=== PATIENT | female | born 1995 | race Caucasian/White ===

== ENCOUNTER 2017-04-04 09:59 | Emergency (ER) | payer OTHER ==
[~2017-04-04] VITALS: Ht 154.9 cm; Wt 50.6 kg
[2017-04-04 10:03] VITALS: BP 118/76
--- NOTE | 2017-04-04 10:09 | NUR ---
Patient to OF.
--- NOTE | 2017-04-04 10:10 | NUR ---
PATIENT PRESENTS TO ED WITH PERSISTANT PRODUCTIVE COUGH X 4 DAYS MILD WHEEZING AUDIBLE OVER UPPER LOBES . PT STATES THROAT PAIN . DENIES N/V/D; SKIN IS PINK/WARM/DRY; AAOX4 WITH EVEN AND STEADY GAIT; LUNGS CLEAR BL; HR EVEN AND REGULAR; PT DENIES ANY CP, PATIENT STATES PAIN OF 8/10 AT THIS TIME; VSS; PATIENT POSITIONED FOR COMFORT; HOB ELEVATED; BEDRAILS UP X2; BED DOWN. ER MD MADE AWARE OF PT STATUS.
--- NOTE | 2017-04-04 10:35 | NUR ---
Dr. Costa evaluating patient.
[2017-04-04 11:02] VITALS: BP 118/76
--- NOTE | 2017-04-04 11:03 | NUR ---
Patient discharged with v/s stable. Written and verbal after care instructions given and explained. Patient alert, oriented and verbalized understanding of instructions. Ambulatory with steady gait. All questions addressed prior to discharge. ID band removed. Patient advised to follow up with PMD. Rx of ZITHROMYCIN/ALBUTEROL given. Patient educated on indication of medication including possible reaction and side effects. Opportunity to ask questions provided and answered.
== END 2017-04-04 11:03 | disposition home or self-care (01) ==
LOC: MED 09:59
DX: J06.9 Acute upper respiratory infection, unspecified (principal); J45.909 Unspecified asthma, uncomplicated
CPT/HCPCS: 99283

== ENCOUNTER 2017-05-23 05:15 | Emergency (ER) | payer OTHER ==
[~2017-05-23] VITALS: Ht 154.9 cm; Wt 52.2 kg
[2017-05-23 05:36] VITALS: BP 97/63
--- NOTE | 2017-05-23 05:40 | NUR ---
TO ER BED 9
--- NOTE | 2017-05-23 06:12 | NUR ---
21 Y/O F W/C/O BILATERAL EYE SWELLING/PAIN/DISCHARGE X YESTERDAY. MED HX ASTHMA, SEASONAL ALLERGIES.
[2017-05-23 06:19] VITALS: BP 105/68
--- NOTE | 2017-05-23 06:19 | NUR ---
Patient discharged with v/s stable. Written and verbal after care instructions given and explained. Patient alert, oriented and verbalized understanding of instructions. Ambulatory with steady gait. All questions addressed prior to discharge. ID band removed. Patient advised to follow up with PMD. Rx of ERYTHROMYCIN 0/5% given. Patient educated on indication of medication including possible reaction and side effects. Opportunity to ask questions provided and answered.
== END 2017-05-23 06:19 | disposition home or self-care (01) ==
LOC: MED 05:15
DX: H02.844 Edema of left upper eyelid (principal); H10.9 Unspecified conjunctivitis; J45.909 Unspecified asthma, uncomplicated; Z90.89 Acquired absence of other organs
CPT/HCPCS: 99283